=== PATIENT | female | born 1935 | race Caucasian/White ===

== ENCOUNTER 2018-04-19 11:13 | Inpatient (IN) | payer OTHER ==
[2018-04-19] VITALS (10 sets, daily range): BP systolic 92–138; BP diastolic 52–115
[~2018-04-19] VITALS: Ht 154.9 cm; Wt 80.8 kg
[~2018-04-19 11:13] MED LIST: ADVIL200 MG PO; BACLOFEN10 MG PO; CALCIUM 500 +1 EAC4 PO; Coumadin Protocol PO; Coumadin,Jantoven PO; ERYTHROMYC1 APPLICAT BOTH EYES; GENTLELAX119 GM PO; LIDODERM 5% P1 PATCH TD; NORCO 5/3251 TABLET PO; SKELAXIN800 MG PO; Senokot S,Pericolace PO; Vicodin,Norco 5/325 PO
[2018-04-19] MEDS ORDERED: XARELTO20 MG PO ×2 (11:48→13:52)
[2018-04-19] MEDS ORDERED: METOPROLOL SUCC50 MG PO (11:51)
[2018-04-19] MEDS ORDERED: VIRTUSSIN AC L118 ML PO (11:52)
[2018-04-19 11:56] LABS: BASE EXCESS -1.1 mEq/L (-3 to +3); BICARBONATE 23.5 mEq/L (22-26); CARBOXY HGB 2.1 % (0-5); COMMENTS - BLOOD GASES C+; CONTINUOUS POS AIRWAY PRESSURE 5 cm H2O; DEVICE MASK VENT; FI02 60 %; METHEMOGLOBIN 1.2 % (0-1.5); MODE SPONT; O2 SATURATION (CALCULATED) 99.3 % (95-99); PCO2 38 mm Hg (35-45); PO2 120 mm Hg (80-100); PRES. SUPPORT 10 CM/H2O; SITE LR; TOTAL RESP RATE 35 resp/min
[2018-04-19 12:17] LABS: BASOPHIL (%) 0.3 % (0-1); BASOPHIL COUNT 0.1 K/uL (0-0.1); EOSINOPHIL (%) 0 % (0-5); HEMATOCRIT 38.6 % (36.0-46.0); HEMOGLOBIN 12.8 G/DL (11.9-15.5); IMMATURE GRANULOCYTE (%) 3.3 % (0.0-0.7); LYMPHOCYTE (%) 1.8 % (15-42); LYMPHOCYTE COUNT 0.5 K/uL (1.0-2.8); MCH 27.1 PG (29.0-34.0); MCHC 33.2 G/DL (30.0-36.0); MCV 81.6 FL (83-99); MONOCYTE (%) 5.5 % (3-12); MONOCYTE COUNT 1.5 K/uL (0-0.8); NEUTROPHIL (%) 89.1 % (45-76); NEUTROPHIL COUNT 24.3 K/uL (1.8-6.4); PLATELET COUNT 333 K/uL (156-360); RBC DIS.WIDTH-CV 16.8 % (11.8-14.6); RBC DIS.WIDTH-SD 49.9 % (39-53); RED BLOOD COUNT 4.73 M/uL (3.80-5.20); WHITE BLOOD COUNT 27.3 K/uL (4.1-10.2)
[2018-04-19 12:26] LABS: CHLORIDE 102 mEq/L (99-109); INTER. NORMALIZED RATIO 2.8; POTASSIUM 4.2 mEq/L (3.7-5.4); SODIUM 138 mEq/L (136-147)
[2018-04-19 12:28] LABS: GLUCOSE 187 mg/dL (70-99); PTT 36.2 SEC (25-37)
[2018-04-19 12:31] LABS: CREATININE 0.9 mg/dL (0.6-1.3); GFR ESTIMATE (CALCULATED) > 59 mL/min/
[2018-04-19 12:32] LABS: UREA NITROGEN (BUN) 18 mg/dL (9-23)
[2018-04-19 12:37] LABS: TROP-I INTERPRETATION POSITIVE
[2018-04-19 12:40] LABS: TROPONIN-I 0.73 ng/mL (0.0-0.30)
[2018-04-19] MEDS ORDERED: VITAMIN D-32000 UNI2 PO (13:52)
[2018-04-19] MEDS ORDERED: LEVOFLOXACIN500 MG PO (13:55)
[2018-04-19] MEDS ORDERED: ALEVE220 MG PO (13:57)
[2018-04-19] MEDS ORDERED: TESSALON PERLE100 MG PO (13:59)
[2018-04-19] MEDS ORDERED: ARTIFICIAL TEAR15 M1 BOTH EYES (14:00)
[2018-04-19 19:10] LABS: TROP-I INTERPRETATION POSITIVE
[2018-04-19 19:11] LABS: TROPONIN-I 1.61 ng/mL (0.0-0.30)
[2018-04-20] VITALS (24 sets, daily range): BP systolic 90–158; BP diastolic 64–99
[2018-04-20 01:06] LABS: TROP-I INTERPRETATION POSITIVE
[2018-04-20 01:09] LABS: TROPONIN-I 1.36 ng/mL (0.0-0.30)
[2018-04-20 05:50] LABS: HEMATOCRIT 37.8 % (36.0-46.0); HEMOGLOBIN 11.7 G/DL (11.9-15.5); MCH 26.1 PG (29.0-34.0); MCV 84.2 FL (83-99); NRBC (%) 0.1 /100 WBC (0-0); PLATELET COUNT 318 K/uL (156-360); RED BLOOD COUNT 4.49 M/uL (3.80-5.20); WHITE BLOOD COUNT 15.7 K/uL (4.1-10.2)
[2018-04-20 06:11] LABS: CHLORIDE 105 MEQ/L (99-109); CREATININE 0.6 MG/DL (0.6-1.3); GFR ESTIMATE (CALCULATED) > 59 mL/min/; POTASSIUM 4.4 MEQ/L (3.7-5.4); SODIUM 142 MEQ/L (136-147); UREA NITROGEN (BUN) 22 mg/dL (9-23)
[2018-04-20 06:38] LABS: GLUCOSE 115 mg/dL (70-99)
[2018-04-21] VITALS (16 sets, daily range): BP systolic 65–184; BP diastolic 51–112
[2018-04-21 05:19] LABS: BASOPHIL (%) 0.3 % (0-1); EOSINOPHIL (%) 0.3 % (0-5); HEMOGLOBIN 10.5 G/DL (11.9-15.5); IMMATURE GRANULOCYTE (%) 4.7 % (0.0-0.7); LYMPHOCYTE (%) 5.6 % (15-42); LYMPHOCYTE COUNT 0.5 K/uL (1.0-2.8); MCH 26.2 PG (29.0-34.0); MCHC 30.9 G/DL (30.0-36.0); MCV 84.8 FL (83-99); MONOCYTE (%) 12.6 % (3-12); MONOCYTE COUNT 1.1 K/uL (0-0.8); NEUTROPHIL (%) 76.5 % (45-76); NEUTROPHIL COUNT 6.6 K/uL (1.8-6.4); NRBC (%) 0.3 /100 WBC (0-0); PLATELET COUNT 288 K/uL (156-360); RBC DIS.WIDTH-CV 17.1 % (11.8-14.6); RED BLOOD COUNT 4.01 M/uL (3.80-5.20); WHITE BLOOD COUNT 8.7 K/uL (4.1-10.2)
[2018-04-21 05:22] LABS: INTER. NORMALIZED RATIO 1.6
[2018-04-21 05:25] LABS: PTT 28.5 SEC (25-37)
[2018-04-21 05:53] LABS: CHLORIDE 110 MEQ/L (99-109); CREATININE 0.5 MG/DL (0.6-1.3); GFR ESTIMATE (CALCULATED) > 59 mL/min/; GLUCOSE 120 mg/dL (70-99); MAGNESIUM 2.1 mg/dl (1.3-2.7); POTASSIUM 3.9 MEQ/L (3.7-5.4); SODIUM 143 MEQ/L (136-147); UREA NITROGEN (BUN) 27 mg/dL (9-23)
[2018-04-21 05:54] LABS: ALBUMIN 2.1 G/DL (3.2-4.8); ALKALINE PHOSPHATASE 100 IU/L (3-129); ALT (GPT) 10 IU/L (3-49); AST (GOT) 24 IU/L (2-34); CHLORIDE 111 MEQ/L (99-109); CREATININE 0.6 MG/DL (0.6-1.3); GFR ESTIMATE (CALCULATED) > 59 mL/min/; GLUCOSE 119 mg/dL (70-99); POTASSIUM 4.3 MEQ/L (3.7-5.4); SODIUM 144 MEQ/L (136-147); TOTAL BILIRUBIN 0.7 MG/DL (0.0-1.0); TOTAL PROTEIN 4.6 G/DL (6.4-8.3); UREA NITROGEN (BUN) 27 mg/dL (9-23)
[2018-04-21 10:26] LABS: COMMENTS - BLOOD GASES A+C+; DEVICE VENT; FI02 100 %; MECHANICAL RATE 14 resp/min; MODE AC; O2 FLOW 50 L/MIN; PCO2 51 mm Hg (35-45); PEEP 7 CM/H20; PO2 67 mm Hg (80-100); SITE LR; TIDAL VOLUME 450 ML; TOTAL RESP RATE 14 resp/min; pH 7.21 (7.35-7.45)
[2018-04-21 10:27] LABS: BASE EXCESS -7.6 mEq/L (-3 to +3); BICARBONATE 20.4 mEq/L (22-26); CARBOXY HGB 1.2 % (0-5); METHEMOGLOBIN 0.5 % (0-1.5)
[2018-04-21 12:23] LABS: COMMENTS - BLOOD GASES A+C+; DEVICE VENTILATOR; FI02 100 %; MECHANICAL RATE 20 resp/min; MODE AC-20; PCO2 50 mm Hg (35-45); PEEP 10 CM/H20; SITE RR; TIDAL VOLUME 500 ML; TOTAL RESP RATE 20 resp/min
[2018-04-21 12:24] LABS: BASE EXCESS -8.4 mEq/L (-3 to +3); BICARBONATE 19.5 mEq/L (22-26); CARBOXY HGB 1.3 % (0-5); O2 SATURATION (CALCULATED) 96.3 % (95-99); PO2 83 mm Hg (80-100)
[2018-04-21 13:36] LABS: INTER. NORMALIZED RATIO 1.6
[2018-04-21 13:38] LABS: PTT 25.3 SEC (25-37)
[2018-04-21 13:49] LABS: ALBUMIN 1.9 G/DL (3.2-4.8); CHLORIDE 107 MEQ/L (99-109); MAGNESIUM 2.2 mg/dl (1.3-2.7); POTASSIUM 4.4 MEQ/L (3.7-5.4); SODIUM 148 MEQ/L (136-147)
[2018-04-21 13:55] LABS: TROP-I INTERPRETATION POSITIVE; TROPONIN-I 0.68 ng/mL (0.0-0.30)
[2018-04-21 13:55] LABS: ALKALINE PHOSPHATASE 107 IU/L (3-129); ALT (GPT) 81 IU/L (3-49); AST (GOT) 268 IU/L (2-34); CREATININE 0.9 MG/DL (0.6-1.3); GFR ESTIMATE (CALCULATED) > 59 mL/min/; GLUCOSE 183 mg/dL (70-99); TOTAL PROTEIN 4.4 G/DL (6.4-8.3); UREA NITROGEN (BUN) 32 mg/dL (9-23)
[2018-04-21 14:00] LABS: PCO2 33 mm Hg (35-45); pH 7.34 (7.35-7.45)
[2018-04-21 14:01] LABS: BASE EXCESS -7.1 mEq/L (-3 to +3); BICARBONATE 17.8 mEq/L (22-26); CARBOXY HGB 0.8 % (0-5); DEVICE VENT; FI02 100 %; MECHANICAL RATE 24 resp/min; METHEMOGLOBIN 0.7 % (0-1.5); MODE AC; O2 FLOW 50 L/MIN; PEEP 10 CM/H20; PO2 228 mm Hg (80-100); SITE A LINE; TIDAL VOLUME 550 ML; TOTAL RESP RATE 24 resp/min
[2018-04-21 17:33] LABS: HIGH-SENS C-REACTIVE PROTEIN > 8.00 MG/DL (0.02-0.20)
[2018-04-22 00:02] VITALS: BP 125/63
[2018-04-22 02:03] VITALS: BP 176/78
[2018-04-22 04:02] VITALS: BP 120/68
[2018-04-22 05:50] LABS: HEMATOCRIT 29.4 % (36.0-46.0); HEMOGLOBIN 9.2 G/DL (11.9-15.5); MCH 26.1 PG (29.0-34.0); MCHC 31.3 G/DL (30.0-36.0); MCV 83.5 FL (83-99); NRBC (%) 1.2 /100 WBC (0-0); PLATELET COUNT 279 K/uL (156-360); RBC DIS.WIDTH-CV 17.2 % (11.8-14.6); RBC DIS.WIDTH-SD 52.5 % (39-53); RED BLOOD COUNT 3.52 M/uL (3.80-5.20); WHITE BLOOD COUNT 11.2 K/uL (4.1-10.2)
[2018-04-22 05:54] LABS: COMMENTS - BLOOD GASES VENOUS BG; DEVICE VENT; O2 SATURATION (CALCULATED) 64.8 % (95-99); PCO2 36 mm Hg (35-45); PO2 32 mm Hg (80-100); SITE CENTRAL LINE BY RN; pH 7.42 (7.35-7.45)
[2018-04-22 05:55] LABS: BASE EXCESS -0.8 mEq/L (-3 to +3); BICARBONATE 23.4 mEq/L (22-26); CARBOXY HGB 0.8 % (0-5); METHEMOGLOBIN 1.1 % (0-1.5)
[2018-04-22 06:11] LABS: CHLORIDE 114 MEQ/L (99-109); CREATININE 0.8 MG/DL (0.6-1.3); GFR ESTIMATE (CALCULATED) > 59 mL/min/; SODIUM 148 MEQ/L (136-147); UREA NITROGEN (BUN) 32 mg/dL (9-23)
[2018-04-22 06:19] LABS: GLUCOSE 331 mg/dL (70-99); POTASSIUM 3.3 MEQ/L (3.7-5.4)
[2018-04-22 07:45] VITALS: BP 132/58
[2018-04-22 08:00] VITALS: BP 135/74
[2018-04-22 09:41] LABS: LACTATE DEHYDROGENASE 548 IU/L (20-246); TOTAL PROTEIN 4.2 G/DL (6.4-8.3)
[2018-04-22 11:01] LABS: DEVICE VENT; FI02 50 %; MECHANICAL RATE 20 resp/min; MODE AC; O2 FLOW 50 L/MIN; SITE A LINE; TOTAL RESP RATE 20 resp/min
[2018-04-22 11:02] LABS: PEEP 10 CM/H20; TIDAL VOLUME 550 ML
[2018-04-22 11:05] LABS: PCO2 31 mm Hg (35-45); PO2 159 mm Hg (80-100); pH 7.43 (7.35-7.45)
[2018-04-22 11:06] LABS: BICARBONATE 20.6 mEq/L (22-26); CARBOXY HGB 0.9 % (0-5); METHEMOGLOBIN 0.6 % (0-1.5)
[2018-04-22 14:00] VITALS: BP 109/48
[2018-04-22 16:07] LABS: TYPE OF FLUID PLEURAL
[2018-04-22 16:38] LABS: BODY FLUID GLUCOSE 260 MG/DL; BODY FLUID LDH 409 IU/L; BODY FLUID PROTEIN < 3.0 G/DL
[2018-04-22 20:31] LABS: MAGNESIUM 1.9 mg/dL (1.3-2.7); POTASSIUM 3.4 mEq/L (3.7-5.4); SODIUM 148 mEq/L (136-147)
[2018-04-22 20:35] LABS: CHLORIDE 118 mEq/L (99-109); GLUCOSE 88 mg/dL (70-99)
[2018-04-22 20:36] LABS: PHOSPHORUS 1.2 mg/dL (2.5-4.9)
[2018-04-22 20:37] LABS: CREATININE 0.7 mg/dL (0.6-1.3); GFR ESTIMATE (CALCULATED) > 59 mL/min/; UREA NITROGEN (BUN) 27 mg/dL (9-23)
[2018-04-22 22:07] LABS: APPEARANCE SL.HAZY/COLORLESS; BODY FLUID RBC'S 4000 /MM^3 (0-100)
[2018-04-22 22:08] LABS: BODY FLUID EOSINOPHILS 0 % (0-25); BODY FLUID WBC'S 715 /MM^3 (0-500); MONONUCLEAR WBC'S 50 %; POLYNUCLEAR WBC'S 50 % (0-25)
[2018-04-23 06:09] LABS: HEMATOCRIT 28.4 % (36.0-46.0); MCH 26.5 PG (29.0-34.0); MCHC 31.7 G/DL (30.0-36.0); MCV 83.8 FL (83-99); NRBC (%) 0.4 /100 WBC (0-0); PLATELET COUNT 245 K/uL (156-360); RBC DIS.WIDTH-CV 17.1 % (11.8-14.6); RBC DIS.WIDTH-SD 51.6 % (39-53); RED BLOOD COUNT 3.39 M/uL (3.80-5.20); WHITE BLOOD COUNT 9.4 K/uL (4.1-10.2)
[2018-04-23 07:00] VITALS: BP 131/56
[2018-04-23 07:24] LABS: ABS NEUTROPHIL COUNT 7.8; ANISOCYTOSIS 1+; BAND NEUTROPHILS 3.5 % (0-8.0); BURR CELLS 1+; EOSINOPHIL ABS CT 0.2; EOSINOPHILS 1.7 % (0-5.0); HYPOCHROMASIA 1+; LYMPHOCYTES 5.3 % (15.0-45.0); MACROCYTES 1+; METAMYELOCYTES 1.8 %; MONOCYTES 6.1 % (0-9.0); MYELOCYTES 1.8 %; PLAT.SUFFICIENCY ADEQUATE; POIKILOCYTOSIS 1+; POLYCHROMASIA 1+; SEG.NEUTROPHILS 79.8 % (46.0-76.0); TARGET CELLS 1+; TEAR DROP CELLS 1+
[2018-04-23 08:00] VITALS: BP 134/56; BP 138/79
[2018-04-23 08:03] LABS: ALBUMIN 2.1 G/DL (3.2-4.8); ALKALINE PHOSPHATASE 97 IU/L (3-129); ALT (GPT) 69 IU/L (3-49); AST (GOT) 118 IU/L (2-34); CHLORIDE 114 MEQ/L (99-109); CREATININE 0.7 MG/DL (0.6-1.3); GFR ESTIMATE (CALCULATED) > 59 mL/min/; GLUCOSE 147 mg/dL (70-99); MAGNESIUM 1.8 mg/dl (1.3-2.7); PHOSPHORUS 1.2 mg/dL (2.5-4.9); POTASSIUM 4.2 MEQ/L (3.7-5.4); SODIUM 148 MEQ/L (136-147); TOTAL BILIRUBIN 1.2 MG/DL (0.0-1.0); TOTAL PROTEIN 4.2 G/DL (6.4-8.3); UREA NITROGEN (BUN) 23 mg/dL (9-23)
[2018-04-23 10:00] VITALS: BP 121/57
[2018-04-23 14:00] VITALS: BP 120/80
[2018-04-23 16:00] VITALS: BP 143/63
[2018-04-24] VITALS (12 sets, daily range): BP systolic 113–147; BP diastolic 46–82
[2018-04-24 05:49] LABS: HEMATOCRIT 27.4 % (36.0-46.0); HEMOGLOBIN 8.8 G/DL (11.9-15.5); MCH 26.3 PG (29.0-34.0); MCHC 32.1 G/DL (30.0-36.0); MCV 81.8 FL (83-99); NRBC (%) 0.8 /100 WBC (0-0); PLATELET COUNT 187 K/uL (156-360); RBC DIS.WIDTH-SD 50.2 % (39-53); RED BLOOD COUNT 3.35 M/uL (3.80-5.20); WHITE BLOOD COUNT 8.7 K/uL (4.1-10.2)
[2018-04-24 06:17] LABS: ALBUMIN 2.8 G/DL (3.2-4.8); CHLORIDE 106 MEQ/L (99-109); POTASSIUM 3.6 MEQ/L (3.7-5.4); SODIUM 144 MEQ/L (136-147); TOTAL BILIRUBIN 1.4 MG/DL (0.0-1.0)
[2018-04-24 06:27] LABS: MAGNESIUM 2.1 mg/dl (1.3-2.7)
[2018-04-24 06:36] LABS: ALKALINE PHOSPHATASE 118 IU/L (3-129); ALT (GPT) 44 IU/L (3-49); AST (GOT) 68 IU/L (2-34); CREATININE 0.7 MG/DL (0.6-1.3); GFR ESTIMATE (CALCULATED) > 59 mL/min/; GLUCOSE 124 mg/dL (70-99); TOTAL PROTEIN 4.7 G/DL (6.4-8.3); UREA NITROGEN (BUN) 21 mg/dL (9-23)
[2018-04-24 06:41] LABS: PHOSPHORUS 3.4 mg/dL (2.5-4.9)
[2018-04-24 06:58] LABS: ABS NEUTROPHIL COUNT 7.3; ANISOCYTOSIS NONE SEEN; BAND NEUTROPHILS 2.6 % (0-8.0); EOSINOPHIL ABS CT 0.1; EOSINOPHILS 1.7 % (0-5.0); LYMPHOCYTES 8.8 % (15.0-45.0); METAMYELOCYTES 0.9 %; MONOCYTES 4.4 % (0-9.0); NUCLEATED RBC'S 2.6; PLAT.SUFFICIENCY ADEQUATE; POIKILOCYTOSIS 1+; POLYCHROMASIA 1+; SEG.NEUTROPHILS 81.6 % (46.0-76.0)
[2018-04-25] VITALS (12 sets, daily range): BP systolic 76–151; BP diastolic 41–86
[2018-04-25 05:47] LABS: HEMATOCRIT 29.1 % (36.0-46.0); HEMOGLOBIN 9.3 G/DL (11.9-15.5); MCH 25.9 PG (29.0-34.0); MCV 81.1 FL (83-99); NRBC (%) 0.6 /100 WBC (0-0); PLATELET COUNT 166 K/uL (156-360); RBC DIS.WIDTH-CV 16.8 % (11.8-14.6); RBC DIS.WIDTH-SD 48.5 % (39-53); RED BLOOD COUNT 3.59 M/uL (3.80-5.20); WHITE BLOOD COUNT 8.4 K/uL (4.1-10.2)
[2018-04-25 06:10] LABS: ALKALINE PHOSPHATASE 125 IU/L (3-129); ALT (GPT) 30 IU/L (3-49); AST (GOT) 45 IU/L (2-34); CHLORIDE 102 MEQ/L (99-109); CREATININE 0.8 MG/DL (0.6-1.3); GFR ESTIMATE (CALCULATED) > 59 mL/min/; GLUCOSE 116 mg/dL (70-99); MAGNESIUM 2.1 mg/dl (1.3-2.7); POTASSIUM 3.4 MEQ/L (3.7-5.4); SODIUM 141 MEQ/L (136-147); TOTAL BILIRUBIN 1.5 MG/DL (0.0-1.0); UREA NITROGEN (BUN) 19 mg/dL (9-23)
[2018-04-25 07:02] LABS: ABS NEUTROPHIL COUNT 6.1; ANISOCYTOSIS 2+; BAND NEUTROPHILS 10.4 % (0-8.0); BASOPHILS 0.9 %; EOSINOPHIL ABS CT 0.2; EOSINOPHILS 2.6 % (0-5.0); MACROCYTES 1+; METAMYELOCYTES 1.7 %; MONOCYTES 13.9 % (0-9.0); MYELOCYTES 0.9 %; NUCLEATED RBC'S 0.9; PLAT.SUFFICIENCY ADEQUATE; POLYCHROMASIA 1+; SEG.NEUTROPHILS 62.6 % (46.0-76.0)
[2018-04-26 21:10] VITALS: BP 138/66
== END 2018-04-26 22:42 | disposition hospice, home (50) | DRG 870 ==
LOC: EME 11:13 → 4WEST 13:51 → EDOF 13:51 → 4WEST 13:51 → ENRESERV 13:52 → CANRESERV 13:52 → ENRESERV 14:05 → 4WEST 15:00
PROVIDERS: Emergency Medicine; Internal Medicine; Internal Medicine Pulmonary Disease; Specialist
PROC: 5A09357 Assistance with Respiratory Ventilation, Less than 24 Consecutive Hours, Continuous Positive Airway Pressure (ICD-10-PCS; principal; 2018-04-19)
PROC: 0BH17EZ Insertion of Endotracheal Airway into Trachea, Via Natural or Artificial Opening (ICD-10-PCS; 2018-04-21)
PROC: 0W9930Z Drainage of Right Pleural Cavity with Drainage Device, Percutaneous Approach (ICD-10-PCS; 2018-04-21)
PROC: 5A1955Z Respiratory Ventilation, Greater than 96 Consecutive Hours (ICD-10-PCS; 2018-04-21)
PROC: 0BC38ZZ Extirpation of Matter from Right Main Bronchus, Via Natural or Artificial Opening Endoscopic (ICD-10-PCS; 2018-04-21)
PROC: B543ZZA Ultrasonography of Right Jugular Veins, Guidance (ICD-10-PCS; 2018-04-21)
PROC: 0BC78ZZ Extirpation of Matter from Left Main Bronchus, Via Natural or Artificial Opening Endoscopic (ICD-10-PCS; 2018-04-21)
PROC: 02HV33Z Insertion of Infusion Device into Superior Vena Cava, Percutaneous Approach (ICD-10-PCS; 2018-04-21)
PROC: 5A12012 Performance of Cardiac Output, Single, Manual (ICD-10-PCS; 2018-04-21)
PROC: 03HY32Z Insertion of Monitoring Device into Upper Artery, Percutaneous Approach (ICD-10-PCS; 2018-04-22)
DX: A41.9 Sepsis, unspecified organism (principal); R65.21 Severe sepsis with septic shock; J18.0 Bronchopneumonia, unspecified organism; J91.8 Pleural effusion in other conditions classified elsewhere; J96.01 Acute respiratory failure with hypoxia; K72.00 Acute and subacute hepatic failure without coma; T17.590A Other foreign object in bronchus causing asphyxiation, initial encounter; J98.11 Atelectasis; N17.9 Acute kidney failure, unspecified; I46.9 Cardiac arrest, cause unspecified; G92 Toxic encephalopathy; R40.20 Unspecified coma; Z66 Do not resuscitate; Z51.5 Encounter for palliative care; R04.2 Hemoptysis; R74.8 Abnormal levels of other serum enzymes; I11.9 Hypertensive heart disease without heart failure; I48.2 Chronic atrial fibrillation; E78.5 Hyperlipidemia, unspecified; I47.1 Supraventricular tachycardia; K21.9 Gastro-esophageal reflux disease without esophagitis; I27.20 Pulmonary hypertension, unspecified; I08.1 Rheumatic disorders of both mitral and tricuspid valves; E66.9 Obesity, unspecified; Z79.01 Long term (current) use of anticoagulants; Z68.34 Body mass index [BMI] 34.0-34.9, adult
CPT/HCPCS: 36600; 36620; 71045; 71250; 71260; 74177; 76942; 80048; 80048 91; 80053; 82945; 82948; 83605; 83615; 83615 91; 83735; 83880; 84100; 84145 90; 84155; 84157; 84484; 85025; 85025 91; 85027; 85610; 85730; 86141; 87040; 87070; 87075; 87205; 87449; 87641; 88108; 88305; 89051; 92610 GN; 93005; 93306; 94002; 94003; 94640; 94760; 94799; 99281; 99285; C1751; C1753; J0171; J1815; J1940; J2060; J2270; J2543; J2704; J3010; J3370; J3475; J3480; J7030; J7042; J7050; J7070; P9045; P9047; S0028